=== PATIENT | female | born 1985 | race Caucasian/White ===

== ENCOUNTER 2016-06-19 13:10 | Emergency (ER) | payer OTHER, SELFPAY ==
[~2016-06-19] VITALS: Ht 162.6 cm; Wt 47.6 kg
[~2016-06-19 13:10] MED LIST: COLACE100 MG PO; DERMOPLAST PAIN78 GM TOP; FERROUS SULFAT325 M1 PO; LAN-O-SOOTHE7 GM TOP; MOTRIN800 MG PO; NORCO 325-5 MG1 TAB PO; PRENATAL PLUS I1 TAB PO
== END 2016-06-19 14:55 | disposition short-term general hospital (02) ==
LOC: ER 13:10
DX: R10.2 Pelvic and perineal pain (principal); Z88.1 Allergy status to other antibiotic agents; Z88.8 Allergy status to other drugs, medicaments and biological substances